=== PATIENT | female | born 2000 | race Caucasian/White ===

== ENCOUNTER 2019-06-18 20:46 | Emergency (ER) | payer BC ==
[2019-06-18 21:17] VITALS: RESP 18
[2019-06-18] MEDS ORDERED: SODIUM CHLORIDE 0.9% 1,000 ML IV ONE (21:35)
[2019-06-18 22:44] LABS: Basophils # (A) 0.1 k/uL (0-0.2); Basophils % (A) 1 %; Eosinophils # (A) 0.1 k/uL (0-0.7); Eosinophils % (A) 1 %; HCT 46.1 % (34.0-46.0); HGB 15.1 gm/dL (11.4-16.0); Lymphocytes # (A) 1.8 k/uL (1.0-4.8); Lymphocytes % (A) 20 %; MCH 29.1 pg (25.0-35.0); MCHC 32.7 g/dL (31.0-37.0); MCV 88.8 fL (80.0-100.0); Mean Platelet Volume 8.5; Monocytes # (A) 0.3 k/uL (0-1.0); Monocytes % (A) 4 %; Neutrophils # (A) 6.3 k/uL (1.3-7.7); Neutrophils % (A) 73 %; Platelet Count 233 k/uL (150-450); RBC 5.18 m/uL (3.80-5.40); WBC 8.7 k/uL (4.0-11.0)
[2019-06-18 22:47] LABS: Appearance,Urine Clear (Clear); Bilirubin,Urine Negative (Negative); Blood,Urine Negative (Negative); Color,Urine Light Yellow; Glucose,Urine (UA) 4+ (Negative); Ketones,Urine Negative (Negative); Leukocyte Esterase,Urine Negative (Negative); Nitrite,Urine Negative (Negative); Protein,Urine Negative (Negative); Specific Gravity,Urine 1.023 (1.001-1.035); Urobilinogen,Urine <2.0 mg/dL (<2.0)
--- NOTE | 2019-06-18 22:47 | ED ---
General Adult HPI - General Chief complaint: Recheck/Abnormal Lab/Rx Stated complaint: Hyperglycemia Time Seen by Provider: 06/18/19 21:34 Source: patient Mode of arrival: ambulatory Limitations: no limitations - History of Present Illness Initial comments: Mariaa is a 19-year-old female with a past medical history of insulin-dependent diabetes was diagnosed when she was 11 years old. Patient has an insulin pump and monitors her glucose closely. She reports over the past week she's been having elevated glucose with levels in the 2 to 300s despite using her pump. She states that she has moved her pump and used a new pump site in case there is pump malfunction. She states that today her sugar seemed to be improving. She did note that her heart rates also been fast and she's not been feeling well for a few days. She saw her clerk general office Sunday who did blood work and called her to let her know that she is in early DKA and needed to come to the hospital. Patient denies any recent illness, fevers chills nausea vomiting change in bowel or bladder habits. She hasn't had any URI-like symptoms. She is not experiencing urinary tract infection like symptoms. has only had DKA one time since being diagnosed with diabetes. Her gluc ose is usually well-managed with her insulin pump. - Related Data Allergies Allergy/AdvReac Type Severity Reaction Status Date / Time amoxicillin Allergy Unknown Verified 06/18/19 21:17 Review of Systems ROS Statement: Those systems with pertinent positive or pertinent negative responses have been documented in the HPI. ROS Other: All systems not noted in ROS Statement are negative. Past Medical History Past Medical History: Diabetes Mellitus History of Any Multi-Drug Resistant Organisms: None Reported Past Surgical History: No Surgical Hx Reported Past Psychological History: No Psychological Hx Reported Smoking Status: Never smoker Past Alcohol Use History: None Reported Past Drug Use History: None Reported General Exam - General Exam Comments Initial Comments: Physical Exam GENERAL: Patient is well-developed and well-nourished. Patient is nontoxic and well- hydrated and is in no distress. HENT: Normocephalic, Atraumatic. EYES: PERRL, EOMI PULMONARY: Unlabored respirations. No audible rales rhonchi or wheezing was noted. CARDIOVASCULAR: There is a regular rate and rhythm without any murmurs gallops or rubs. ABDOMEN: Soft and nontender with normal bowel sounds. SKIN: Skin is clear with no lesions or rashes and otherwise unremarkable. Insulin pump in place right posterior arm : Deferred NEUROLOGIC: Patient is alert and oriented x3. Moving all extremities spontaneously MUSCULOSKELETAL: Normal extremities with adequate strength and full range of motion. No lower extremity swelling or edema. No calf tenderness. PSYCHIATRIC: Normal psychiatric evaluation. Limitations: no limitations Course Vital Signs 06/18/19 21:14 Temperature 98.7 F Pulse Rate 120 H Respiratory 18 Rate Blood Pressure 141/91 O2 Sat by Pulse 98 Oximetry Medical Decision Making - Medical Decision Making The patient was seen and evaluated history is obtained from the patient. Patient's been having hyperglycemia she saw her clerk general office who told her on Sunday that she may be in early DKA, she changed her insulin slightly bolused insulin and has been drinking plenty of water since that time but decided to come to the ER for evaluation today. Labs were ordered and were unremarkable, there is no anion gap, glucose is 127. This time there is no evidence of DKA. Results were discussed with the patient who is comfortable with plan for disc harge home. All questions pertaining care were answered return parameters were discussed patient discharged home in stable condition. - Lab Data Result diagrams: 06/18/19 22:45 06/18/19 22:15 Lab Results 06/18/19 06/18/19 06/18/19 Range/Units 22:15 22:15 22:15 WBC (4.0-11.0) k/uL RBC (3.80-5.40) m/uL Hgb (11.4-16.0) gm/dL Hct (34.0-46.0) % MCV (80.0-100.0) fL MCH (25.0-35.0) pg MCHC (31.0-37.0) g/dL RDW (11.5-15.5) % Plt Count (150-450) k/uL Neutrophils % % Lymphocytes % % Monocytes % % Eosinophils % % Basophils % % Neutrophils # (1.3-7.7) k/uL Lymphocytes # (1.0-4.8) k/uL Monocytes # (0-1.0) k/uL Eosinophils # (0-0.7) k/uL Basophils # (0-0.2) k/uL VBG pH (7.31-7.41) VBG pCO2 (37-51) mmHg VBG HCO3 (24-28) mmol/L Sodium 139 (137-145) mmol/L Potassium 4.3 (3.5-5.1) mmol/L Chloride 106 (98-107) mmol/L Carbon Dioxide 25 (22-30) mmol/L Anion Gap 8 mmol/L BUN 16 (7-17) mg/dL Creatinine 0.82 (0.52-1.04) mg/dL Est GFR (CKD-EPI)AfAm >90 (>60 ml/min/1.73 sqM) Est GFR (CKD-EPI)NonAf >90 (>60 ml/min/1.73 sqM) Glucose 127 H (74-99) mg/dL Plasma Lactic Acid Kb 1.3 (0.7-2.0) mmol/L Calcium 9.7 (8.4-10.2) mg/dL Magnesium 2.0 (1.6-2.3) mg/dL Total Bilirubin 0.4 (0.2-1.3) mg/dL AST 30 (14-36) U/L ALT 23 (9-52) U/L Alkaline Phosphatase 95 (38-126) U/L Total Protein 8.1 (6.3-8.2) g/dL Albumin 4.6 (3.5-5.0) g/dL TSH 2.510 (0.465-4.680) mIU/L Urine Color Light Yellow Urine Appearance Clear (Clear) Urine pH 7.0 (5.0-8.0) Ur Specific [place] 1.023 (1.001-1.035) Urine Protein Negative (Negative) Urine Glucose (UA) 4+ H (Negative) Urine Ketones Negative (Negative) Urine Blood Negative (Negative) Urine Nitrite Negative (Negative) Urine Bilirubin Negative (Negative) Urine Urobilinogen <2.0 (<2.0) mg/dL Ur Leukocyte Esterase Negative (Negative) Urine HCG, Qual (Not Detectd) Acetone, Qual Negative (Negative) 06/18/19 06/18/19 06/18/19 Range/Units 22:45 22:45 23:02 WBC 8.7 (4.0-11.0) k/uL RBC 5.18 (3.80-5.40) m/uL Hgb 15.1 (11.4-16.0) gm/dL Hct 46.1 H (34.0-46.0) % MCV 88.8 (80.0-100.0) fL MCH 29.1 (25.0-35.0) pg MCHC 32.7 (31.0-37.0) g/dL RDW 13.0 (11.5-15.5) % Plt Count 233 (150-450) k/uL Neutrophils % 73 % Lymphocytes % 20 % Monocytes % 4 % Eosinophils % 1 % Basophils % 1 % Neutrophils # 6.3 (1.3-7.7) k/uL Lymphocytes # 1.8 (1.0-4.8) k/uL Monocytes # 0.3 (0-1.0) k/uL Eosinophils # 0.1 (0-0.7) k/uL Basophils # 0.1 (0-0.2) k/uL VBG pH 7.35 (7.31-7.41) VBG pCO2 47 (37-51) mmHg VBG HCO3 25 (24-28) mmol/L Sodium (137-145) mmol/L Potassium (3.5-5.1) mmol/L Chloride (98-107) mmol/L Carbon Dioxide (22-30) mmol/L Anion Gap mmol/L BUN (7-17) mg/dL Creatinine (0.52-1.04) mg/dL Est GFR (CKD-EPI)AfAm (>60 ml/min/1.73 sqM) Est GFR (CKD-EPI)NonAf (>60 ml/min/1.73 sqM) Glucose (74-99) mg/dL Plasma Lactic Acid Kb (0.7-2.0) mmol/L Calcium (8.4-10.2) mg/dL Magnesium (1.6-2.3) mg/dL Total Bilirubin (0.2-1.3) mg/dL AST (14-36) U/L ALT (9-52) U/L Alkaline Phosphatase (38-126) U/L Total Protein (6.3-8.2) g/dL Albumin (3.5-5.0) g/dL TSH (0.465-4.680) mIU/L Urine Color Urine Appearance (Clear) Urine pH (5.0-8.0) Ur Specific [place] (1.001-1.035) Urine Protein (Negative) Urine Glucose (UA) (Negative) Urine Ketones (Negative) Urine Blood (Negative) Urine Nitrite (Negative) Urine Bilirubin (Negative) Urine Urobilinogen (<2.0) mg/dL Ur Leukocyte Esterase (Negative) Urine HCG, Qual Not Detected (Not Detectd) Acetone, Qual (Negative) Disposition Clinical Impression: Hyperglycemia due to type 1 diabetes mellitus Disposition: HOME SELF-CARE Condition: Stable Instructions (If sedation given, give patient instructions): Diabetic Ketoacidosis (DC) Is patient prescribed a controlled substance at d/c from ED?: No Referrals: Amari Au DO [Primary Care Provider] - 1-2 days
[2019-06-18 23:00] LABS: ALT 23 U/L (9-52); AST 30 U/L (14-36); African American GFR (CKD) >90 (>60 ml/min/1.73 sqM); Albumin 4.6 g/dL (3.5-5.0); Alkaline Phosphatase 95 U/L (38-126); Anion Gap 8 mmol/L; Blood Urea Nitrogen 16 mg/dL (7-17); Calcium 9.7 mg/dL (8.4-10.2); Carbon Dioxide 25 mmol/L (22-30); Chloride 106 mmol/L (98-107); Glucose 127 mg/dL (74-99); Potassium 4.3 mmol/L (3.5-5.1); Sodium 139 mmol/L (137-145); Total Bilirubin 0.4 mg/dL (0.2-1.3); Total Protein 8.1 g/dL (6.3-8.2)
[2019-06-18 23:31] LABS: VBG PH 7.35 (7.31-7.41)
[2019-06-19 00:05] VITALS: BP 125/82; PULSE 91; TEMP 98
== END 2019-06-19 00:09 | disposition home or self-care (01) ==
LOC: EC 20:46
DX: E10.65 Type 1 diabetes mellitus with hyperglycemia (principal); Z79.4 Long term (current) use of insulin; Z96.41 Presence of insulin pump (external) (internal); Z88.0 Allergy status to penicillin
CPT/HCPCS: 36415; 80053; 81003; 81025; 82009; 82803; 83605; 83735; 83930; 84443; 85025; 87040; 96360; 99284

== ENCOUNTER 2019-08-04 18:52 | Inpatient (IN) | payer BC ==
[2019-08-04 19:23] LABS: Glucose,Whole Blood 377 mg/dL (75-99)
--- NOTE | 2019-08-04 19:23 | ED ---
Nausea/Vomiting/Diarrhea HPI <Esperanza Garcia - Last Filed: 08/04/19 19:16> <Sharon Griffin - Last Filed: 08/05/19 00:17> - General Stated complaint: Vomiting/lightheaded - History of Present Illness Initial comments: seen in triage sinus infection x 1 week, on bactrim for sinus infection x 3 days, now vomiting, lightheaded, [place], belly pain type 1 DM, last BG 230 ATP orders in (Esperanza Garcia) Type I diabetic presenting today for chief complaint of vomiting lightheaded sensation x 2 days. Patient states that she was recently put on Bactrim for sinus infection 3 days ago. She states she has had a severe cough and congestion. Patient states that now she has an upset stomach lightheaded sensation and has been vomiting. Patient states she has had elevated blood glucose readings with the last being in the 300s. Patient patient states she also has had episodes of loose stools she denies any specific a dull pain. Patient denies any other complaints at this time, including CP or SOB. Patient HR 148. (Sharon Griffin) - Related Data Home Medications Medication Instructions Recorded Confirmed Insulin Aspart (For Pump) [NovoLOG 0.01 unit SQ-PUMP CONTINUOUS 08/04/19 08/04/19 (For Pump)] Mucinex Sinus Max Nasal [place] 1 spr EA NOSTRIL DAILY 08/04/19 Sulfamethoxazole/Trimethoprim 1 tab PO BID 08/04/19 08/04/19 [Bactrim DS 800-160 mg] medroxyPROGESTERone [Depo-Provera] 150 mg IM Q84D 08/04/19 08/04/19 Allergies Allergy/AdvReac Type Severity Reaction Status Date / Time amoxicillin Allergy Unknown Verified 08/04/19 22:58 Review of Systems ROS Other: All systems not noted in ROS Statement are negative. <Esperanza Garcia - Last Filed: 08/04/19 19:16> ROS Other: All systems not noted in ROS Statement are negative. <Sharon Griffin - Last Filed: 08/05/19 00:17> ROS Statement: Those systems with pertinent positive or pertinent negative responses have been documented in the HPI. Past Medical History Past Medical History: Diabetes Mellitus History of Any Multi-Drug Resistant Organisms: None Reported Past Surgical History: No Surgical Hx Reported Past Psychological History: No Psychological Hx Reported Smoking Status: Never smoker Past Alcohol Use History: None Reported Past Drug Use History: None Reported <Esperanza Garcia - Last Filed: 08/04/19 19:16> General Exam <Sharon Griffin - Last Filed: 08/05/19 00:17> - General Exam Comments Initial Comments: General: The patient is awake and alert, in no distress Eye: +3 mm pupils are equal, round and reactive to light, extra-ocular movements are intact. No nystagmus. There is normal conjunctiva bilaterally. No signs of icterus. Ears, nose, mouth and throat: There are dry mucous membranes with cracked lips. Neck: The neck is supple, there is no tenderness or JVD. Cardiovascular: There is a increased rate and rhythm. No murmur, rub or gallop is appreciated. Respiratory: Lungs are clear to auscultation, respirations are non-labored, breath sounds are equal. No wheezes, stridor, rales, or rhonchi. Gastrointestinal: Soft, non-distended, non-tender abdomen without masses or organomegaly noted. There is no rebound or guarding present. Musculoskeletal: Normal ROM, no tenderness. Strength 5/5. Sensation intact. radial pulses equal bilaterally 2+. Neurological: A&O x 3. CN II-XII intact grossly, There are no obvious motor or sensory deficits. Coordination appears grossly intact. Speech is normal. Skin: Skin is warm and dry and no rashes or lesions are noted. Psychiatric: Cooperative, appropriate mood & affect, normal judgment. (Sharon Griffin) Course Vital Signs 08/04/19 08/04/19 08/04/19 19:14 21:49 22:49 Temperature 97.3 F L Pulse Rate 148 H 120 H 111 H Respiratory 20 18 18 Rate Blood Pressure 114/43 122/87 136/92 O2 Sat by Pulse 99 100 99 Oximetry 08/04/19 08/04/19 23:05 23:12 Temperature 97.3 F L Pulse Rate 108 H 108 H Respiratory 18 18 Rate Blood Pressure 113/86 113/86 O2 Sat by Pulse 100 100 Oximetry Medical Decision Making - Lab Data Result diagrams: 08/04/19 20:10 08/04/19 20:10 <Sharon Griffin - Last Filed: 08/05/19 00:17> - Medical Decision Making 19-year-old female presents today for chief complaint of vomiting, lightheaded. HR 148 on arrival. Appears dehydrated. Found to be in DKA. patient given agressive iv hydration, insulin drip. HR trending downward. Pt does not appear in distress. CXR clear. EKG sinus tachycardia. Patient will be admitted to ICU, discussed case with Dr. Mendieta who will speak to household appliance repairer admitting providers. Patient agreeable with care plan and admission at this time. Total of 45 minutes of critical care time was spent on patient including consulting provider (intensivists, admitting providers), initial evaluation, placing orders, reevaluation/updates Ventricular rate 147 bpm, NE interval 120 ms, QR administration 72 ms, QT/QTC 336/525ms. Artifact noted. No st elevation or depression. (Sharon Griffin) - Lab Data Lab Results 08/04/19 08/04/19 08/04/19 Range/Units 19:21 20:10 20:10 WBC 7.8 (4.0-11.0) k/uL RBC 6.27 H (3.80-5.40) m/uL Hgb 18.6 H D (11.4-16.0) gm/dL Hct 55.2 H (34.0-46.0) % MCV 88.0 (80.0-100.0) fL MCH 29.7 (25.0-35.0) pg MCHC 33.7 (31.0-37.0) g/dL RDW 13.1 (11.5-15.5) % Plt Count 215 (150-450) k/uL Neutrophils % 69 % Lymphocytes % 20 % Monocytes % 9 % Eosinophils % 1 % Basophils % 1 % Neutrophils # 5.4 (1.3-7.7) k/uL Lymphocytes # 1.5 (1.0-4.8) k/uL Monocytes # 0.7 (0-1.0) k/uL Eosinophils # 0.0 (0-0.7) k/uL Basophils # 0.1 (0-0.2) k/uL VBG pH (7.31-7.41) VBG pCO2 (37-51) mmHg VBG HCO3 (24-28) mmol/L Sodium 132 L (137-145) mmol/L Potassium 5.7 H (3.5-5.1) mmol/L Chloride 100 (98-107) mmol/L Carbon Dioxide 6 L* (22-30) mmol/L Anion Gap 26 mmol/L BUN 24 H (7-17) mg/dL Creatinine 0.90 (0.52-1.04) mg/dL Est GFR (CKD-EPI)AfAm >90 (>60 ml/min/1.73 sqM) Est GFR (CKD-EPI)NonAf >90 (>60 ml/min/1.73 sqM) Glucose 342 H (74-99) mg/dL POC Glucose (mg/dL) 377 H (75-99) mg/dL POC Glu Heel Curver ID Calcium 10.4 H (8.4-10.2) mg/dL Phosphorus 4.8 H (2.5-4.5) mg/dL Magnesium 2.1 (1.6-2.3) mg/dL Total Bilirubin 1.1 (0.2-1.3) mg/dL AST 38 H (14-36) U/L ALT 17 (4-34) U/L Alkaline Phosphatase 140 H (38-126) U/L Total Protein 10.0 H (6.3-8.2) g/dL Albumin 5.4 H (3.5-5.0) g/dL Urine Color Urine Appearance (Clear) Urine pH (5.0-8.0) Ur Specific [place] (1.001-1.035) Urine Protein (Negative) Urine Glucose (UA) (Negative) Urine Ketones (Negative) Urine Blood (Negative) Urine Nitrite (Negative) Urine Bilirubin (Negative) Urine Urobilinogen (<2.0) mg/dL Ur Leukocyte Esterase (Negative) Urine RBC (0-5) /hpf Urine WBC (0-5) /hpf Ur Squamous Epith Cells (0-4) /hpf Urine Bacteria (None) /hpf Hyaline Casts (0-2) /lpf Urine Mucus (None) /hpf Urine HCG, Qual (Not Detectd) Acetone, Qual (Negative) 08/04/19 08/04/19 08/04/19 Range/Units 20:10 20:10 20:33 WBC (4.0-11.0) k/uL RBC (3.80-5.40) m/uL Hgb (11.4-16.0) gm/dL Hct (34.0-46.0) % MCV (80.0-100.0) fL MCH (25.0-35.0) pg MCHC (31.0-37.0) g/dL RDW (11.5-15.5) % Plt Count (150-450) k/uL Neutrophils % % Lymphocytes % % Monocytes % % Eosinophils % % Basophils % % Neutrophils # (1.3-7.7) k/uL Lymphocytes # (1.0-4.8) k/uL Monocytes # (0-1.0) k/uL Eosinophils # (0-0.7) k/uL Basophils # (0-0.2) k/uL VBG pH (7.31-7.41) VBG pCO2 (37-51) mmHg VBG HCO3 (24-28) mmol/L Sodium (137-145) mmol/L Potassium (3.5-5.1) mmol/L Chloride (98-107) mmol/L Carbon Dioxide (22-30) mmol/L Anion Gap mmol/L BUN (7-17) mg/dL Creatinine (0.52-1.04) mg/dL Est GFR (CKD-EPI)AfAm (>60 ml/min/1.73 sqM) Est GFR (CKD-EPI)NonAf (>60 ml/min/1.73 sqM) Glucose (74-99) mg/dL POC Glucose (mg/dL) (75-99) mg/dL POC Glu Heel Curver ID Calcium (8.4-10.2) mg/dL Phosphorus (2.5-4.5) mg/dL Magnesium (1.6-2.3) mg/dL Total Bilirubin (0.2-1.3) mg/dL AST (14-36) U/L ALT (4-34) U/L Alkaline Phosphatase (38-126) U/L Total Protein (6.3-8.2) g/dL Albumin (3.5-5.0) g/dL Urine Color Yellow Urine Appearance Cloudy H (Clear) Urine pH 6.0 (5.0-8.0) Ur Specific [place] 1.033 (1.001-1.035) Urine Protein 2+ H (Negative) Urine Glucose (UA) 4+ H (Negative) Urine Ketones 4+ H (Negative) Urine Blood Large H (Negative) Urine Nitrite Negative (Negative) Urine Bilirubin Negative (Negative) Urine Urobilinogen <2.0 (<2.0) mg/dL Ur Leukocyte Esterase Small H (Negative) Urine RBC 115 H (0-5) /hpf Urine WBC 14 H (0-5) /hpf Ur Squamous Epith Cells 3 (0-4) /hpf Urine Bacteria Rare H (None) /hpf Hyaline Casts 18 H (0-2) /lpf Urine Mucus Rare H (None) /hpf Urine HCG, Qual Not Detected (Not Detectd) Acetone, Qual Positive (Negative) 08/04/19 08/04/19 Range/Units 21:05 22:25 WBC (4.0-11.0) k/uL RBC (3.80-5.40) m/uL Hgb (11.4-16.0) gm/dL Hct (34.0-46.0) % MCV (80.0-100.0) fL MCH (25.0-35.0) pg MCHC (31.0-37.0) g/dL RDW (11.5-15.5) % Plt Count (150-450) k/uL Neutrophils % % Lymphocytes % % Monocytes % % Eosinophils % % Basophils % % Neutrophils # (1.3-7.7) k/uL Lymphocytes # (1.0-4.8) k/uL Monocytes # (0-1.0) k/uL Eosinophils # (0-0.7) k/uL Basophils # (0-0.2) k/uL VBG pH 7.17 L* (7.31-7.41) VBG pCO2 29 L (37-51) mmHg VBG HCO3 10 L (24-28) mmol/L Sodium (137-145) mmol/L Potassium (3.5-5.1) mmol/L Chloride (98-107) mmol/L Carbon Dioxide (22-30) mmol/L Anion Gap mmol/L BUN (7-17) mg/dL Creatinine (0.52-1.04) mg/dL Est GFR (CKD-EPI)AfAm (>60 ml/min/1.73 sqM) Est GFR (CKD-EPI)NonAf (>60 ml/min/1.73 sqM) Glucose (74-99) mg/dL POC Glucose (mg/dL) 248 H (75-99) mg/dL POC Glu Heel Curver ID Jorge Alberto Flores Calcium (8.4-10.2) mg/dL Phosphorus (2.5-4.5) mg/dL Magnesium (1.6-2.3) mg/dL Total Bilirubin (0.2-1.3) mg/dL AST (14-36) U/L ALT (4-34) U/L Alkaline Phosphatase (38-126) U/L Total Protein (6.3-8.2) g/dL Albumin (3.5-5.0) g/dL Urine Color Urine Appearance (Clear) Urine pH (5.0-8.0) Ur Specific [place] (1.001-1.035) Urine Protein (Negative) Urine Glucose (UA) (Negative) Urine Ketones (Negative) Urine Blood (Negative) Urine Nitrite (Negative) Urine Bilirubin (Negative) Urine Urobilinogen (<2.0) mg/dL Ur Leukocyte Esterase (Negative) Urine RBC (0-5) /hpf Urine WBC (0-5) /hpf Ur Squamous Epith Cells (0-4) /hpf Urine Bacteria (None) /hpf Hyaline Casts (0-2) /lpf Urine Mucus (None) /hpf Urine HCG, Qual (Not Detectd) Acetone, Qual (Negative) Disposition <Esperanza Garcia L - Last Filed: 08/04/19 19:16> Is patient prescribed a controlled substance at d/c from ED?: No Time of Disposition: 22:29 Decision to Admit Reason: Admit from EC Decision Date: 08/04/19 Decision Time: 22:29 <Sharon Griffin L - Last Filed: 08/05/19 00:17> Clinical Impression: DKA (diabetic ketoacidoses) Disposition: ADMITTED IP TO THIS [facility] Condition: Serious
[2019-08-04] MEDS ORDERED: SODIUM CHLORIDE 0.9% 1,000 ML IV ONE (19:47)
[2019-08-04 20:45] LABS: Appearance,Urine Cloudy (Clear); Bacteria,Urine Rare /hpf; Bilirubin,Urine Negative (Negative); Blood,Urine Large (Negative); Color,Urine Yellow; Glucose,Urine (UA) 4+ (Negative); Hyaline Casts,Urine 18 /lpf (0-2); Leukocyte Esterase,Urine Small (Negative); Mucus,Urine Rare /hpf; Nitrite,Urine Negative (Negative); Protein,Urine 2+ (Negative); RBC,Urine 115 /hpf (0-5); Specific Gravity,Urine 1.033 (1.001-1.035); Squamous Epithelial Cell,Urine 3 /hpf (0-4); Urobilinogen,Urine <2.0 mg/dL (<2.0); WBC,Urine 14 /hpf (0-5)
[2019-08-04 20:48] LABS: Ketones,Urine 4+ (Negative)
[2019-08-04 20:54] LABS: Basophils # (A) 0.1 k/uL (0-0.2); Basophils % (A) 1 %; Eosinophils % (A) 1 %; Lymphocytes # (A) 1.5 k/uL (1.0-4.8); Lymphocytes % (A) 20 %; MCH 29.7 pg (25.0-35.0); MCHC 33.7 g/dL (31.0-37.0); Mean Platelet Volume 11.9; Monocytes # (A) 0.7 k/uL (0-1.0); Monocytes % (A) 9 %; Neutrophils # (A) 5.4 k/uL (1.3-7.7); Neutrophils % (A) 69 %; Platelet Count 215 k/uL (150-450); RBC 6.27 m/uL (3.80-5.40); RDW 13.1 % (11.5-15.5); WBC 7.8 k/uL (4.0-11.0)
[2019-08-04 21:06] LABS: ALT 17 U/L (4-34); AST 38 U/L (14-36); African American GFR (CKD) >90 (>60 ml/min/1.73 sqM); Albumin 5.4 g/dL (3.5-5.0); Alkaline Phosphatase 140 U/L (38-126); Anion Gap 26 mmol/L; Blood Urea Nitrogen 24 mg/dL (7-17); Calcium 10.4 mg/dL (8.4-10.2); Chloride 100 mmol/L (98-107); Glucose 342 mg/dL (74-99); Magnesium 2.1 mg/dL (1.6-2.3); Non-African American GFR(CKD) >90 (>60 ml/min/1.73 sqM); Phosphorus 4.8 mg/dL (2.5-4.5); Potassium 5.7 mmol/L (3.5-5.1); Sodium 132 mmol/L (137-145); Total Bilirubin 1.1 mg/dL (0.2-1.3)
[2019-08-04 21:13] LABS: Carbon Dioxide 6 mmol/L (22-30)
[2019-08-04 21:15] LABS: HCT 55.2 % (34.0-46.0)
[2019-08-04] MEDS: SODIUM CHLORIDE 0.9% 1,000 ML IV SCH ×2 (21:16→23:36)
[2019-08-04 21:17] LABS: HGB 18.6 gm/dL (11.4-16.0)
--- NOTE | 2019-08-04 21:43 | XR ---
EXAMINATION TYPE: XR chest 2V DATE OF EXAM: 08/04/2019 COMPARISON: NONE HISTORY: Chest pain TECHNIQUE: 2 views FINDINGS: Heart and mediastinum are normal. Lungs are clear. Diaphragm is normal. Bony thorax appears normal. IMPRESSION: Normal chest.
[2019-08-04] MEDS: INSULIN REGULAR 100 UNIT in SODIUM CHLORIDE 0.9% 100 ML IV SCH (21:47)
[2019-08-04 22:19] LABS: VBG PH 7.17 (7.31-7.41)
[2019-08-04 22:27] LABS: Glucose,Whole Blood 248 mg/dL (75-99)
[2019-08-04] MEDS ORDERED: D5-0.45% NACL WITH KCL 20MEQ/L 1,000 ML IV SCH (22:30)
[2019-08-04 23:31] LABS: Glucose,Whole Blood 168 mg/dL (75-99)
[2019-08-05 00:40] LABS: Glucose,Whole Blood 164 mg/dL (75-99)
[2019-08-05 01:29] LABS: African American GFR (CKD) >90 (>60 ml/min/1.73 sqM); Blood Urea Nitrogen 22 mg/dL (7-17); Calcium 8.8 mg/dL (8.4-10.2); Chloride 112 mmol/L (98-107); Glucose 148 mg/dL (74-99); Non-African American GFR(CKD) >90 (>60 ml/min/1.73 sqM); Phosphorus 2.5 mg/dL (2.5-4.5); Sodium 135 mmol/L (137-145)
[2019-08-05 01:34] LABS: Anion Gap 16 mmol/L
[2019-08-05 01:37] LABS: Glucose,Whole Blood 144 mg/dL (75-99)
[2019-08-05 01:47] LABS: Carbon Dioxide 7 mmol/L (22-30); Potassium 5.6 mmol/L (3.5-5.1)
[2019-08-05] MEDS: DEXTROSE 5%-0.45% NACL 1,000 ML IV SCH ×3 (02:32→17:36)
[2019-08-05 02:35] LABS: Glucose,Whole Blood 135 mg/dL (75-99)
[2019-08-05 03:37] LABS: Glucose,Whole Blood 137 mg/dL (75-99)
[2019-08-05 04:34] LABS: Glucose,Whole Blood 186 mg/dL (75-99)
[2019-08-05 05:38] LABS: Glucose,Whole Blood 194 mg/dL (75-99)
[2019-08-05 05:44] LABS: Basophils # (A) 0.1 k/uL (0-0.2); Basophils % (A) 1 %; Eosinophils # (A) 0.2 k/uL (0-0.7); Eosinophils % (A) 3 %; HCT 41.4 % (34.0-46.0); Lymphocytes # (A) 2.4 k/uL (1.0-4.8); Lymphocytes % (A) 36 %; MCH 29.3 pg (25.0-35.0); MCHC 34.6 g/dL (31.0-37.0); MCV 84.6 fL (80.0-100.0); Mean Platelet Volume 11.2; Monocytes # (A) 0.6 k/uL (0-1.0); Monocytes % (A) 9 %; Neutrophils # (A) 3.2 k/uL (1.3-7.7); Neutrophils % (A) 49 %; Platelet Count 218 k/uL (150-450); RBC 4.89 m/uL (3.80-5.40); RDW 12.9 % (11.5-15.5); WBC 6.6 k/uL (4.0-11.0)
[2019-08-05 05:45] LABS: HGB 14.3 gm/dL (11.4-16.0)
[2019-08-05 05:59] LABS: African American GFR (CKD) >90 (>60 ml/min/1.73 sqM); Anion Gap 13 mmol/L; Blood Urea Nitrogen 21 mg/dL (7-17); Calcium 8.8 mg/dL (8.4-10.2); Chloride 110 mmol/L (98-107); Glucose 177 mg/dL (74-99); Non-African American GFR(CKD) >90 (>60 ml/min/1.73 sqM); Phosphorus 2.9 mg/dL (2.5-4.5); Sodium 132 mmol/L (137-145)
[2019-08-05 06:01] LABS: Carbon Dioxide 9 mmol/L (22-30)
[2019-08-05 07:01] LABS: Glucose,Whole Blood 225 mg/dL (75-99)
[2019-08-05 08:12] LABS: Glucose,Whole Blood 293 mg/dL (75-99)
[2019-08-05 09:20] LABS: Glucose,Whole Blood 310 mg/dL (75-99)
[2019-08-05 10:11] LABS: African American GFR (CKD) >90 (>60 ml/min/1.73 sqM); Anion Gap 12 mmol/L; Blood Urea Nitrogen 17 mg/dL (7-17); Calcium 7.9 mg/dL (8.4-10.2); Carbon Dioxide 12 mmol/L (22-30); Chloride 106 mmol/L (98-107); Glucose 304 mg/dL (74-99); Non-African American GFR(CKD) >90 (>60 ml/min/1.73 sqM); Phosphorus 2.6 mg/dL (2.5-4.5); Potassium 3.9 mmol/L (3.5-5.1); Sodium 130 mmol/L (137-145)
[2019-08-05 10:16] VITALS: BMI 25.0
[2019-08-05 10:17] LABS: Glucose,Whole Blood 280 mg/dL (75-99)
[2019-08-05 11:19] LABS: Glucose,Whole Blood 244 mg/dL (75-99)
[2019-08-05 12:12] LABS: Glucose,Whole Blood 229 mg/dL (75-99)
[2019-08-05 13:03] LABS: Glucose,Whole Blood 239 mg/dL (75-99)
[2019-08-05 14:00] LABS: Glucose,Whole Blood 200 mg/dL (75-99)
[2019-08-05 14:34] LABS: African American GFR (CKD) >90 (>60 ml/min/1.73 sqM); Anion Gap 10 mmol/L; Blood Urea Nitrogen 15 mg/dL (7-17); Calcium 8.2 mg/dL (8.4-10.2); Carbon Dioxide 14 mmol/L (22-30); Chloride 108 mmol/L (98-107); Glucose 194 mg/dL (74-99); Non-African American GFR(CKD) >90 (>60 ml/min/1.73 sqM); Potassium 3.3 mmol/L (3.5-5.1); Sodium 132 mmol/L (137-145)
[2019-08-05 15:09] LABS: Glucose,Whole Blood 191 mg/dL (75-99)
[2019-08-05 16:05] LABS: Glucose,Whole Blood 158 mg/dL (75-99)
[2019-08-05] MEDS ORDERED: INSPUCOR MISCELLANE PRN (17:07)
[2019-08-05] MEDS ORDERED: INSULIN PUMP BASAL RATES 1 EACH MISC MISCELLANE PRN (17:07)
[2019-08-05] MEDS ORDERED: INSULIN ASPART (NovoLOG) 100 UNIT/ML VIAL SQ PRN (17:07)
[2019-08-05] MEDS: INSULIN REGULAR 100 UNIT in SODIUM CHLORIDE 0.9% 100 ML IV SCH (17:36)
[2019-08-05 17:38] LABS: Glucose,Whole Blood 155 mg/dL (75-99)
[2019-08-05] MEDS: INSULIN PUMP MEAL BOLUS 1 UNIT MISC MISCELLANE SCH ×2 (17:50→21:09)
--- NOTE | 2019-08-05 18:39 | P.HPIM ---
History of Present Illness H&P Date: 08/05/19 Chief Complaint: Nausea vomiting and abdominal pain. Patient is a 19-year-old female with a known history of diabetes type 1 currently on insulin pump came to ER with the complaints of nausea vomiting and abdominal pain worsening for the past 2-3 days. Patient also felt lightheaded. Currently patient is being treated for sinus infection with Bactrim DS twice daily. Patient did take medication for 2 days. Due to nausea and vomiting patient has not been eating very well last 2-3 days. Patient has been having blood sugar elevated reading up to 300s at home. She also had episodes of diarrhea/loose stools. Abdominal pain is mainly diffuse and dull ache. Denied any complaints of chest pain or shortness of breath. No headache. No cough or sputum production. Patient was tachycardic with heart rate up to 148 on admission. Was found to be in DKA and was started on insulin drip and continued on IV hydration. Chest x-ray showed no acute cardio per process EKG showed sinus tachycardia. Patient was admitted to MICU. Anion gap 26 and bicarb level is 6 on admission. Potassium 5.7. Acetone positive Urinalysis showed cloudy with small leukocyte esterase with elevated WBC and RBCs. Review of Systems Constitutional: Patient denies any fever or chills . Generalized weakness and lethargy. No weight loss. Abdomen: Nausea vomiting and abdominal pain. And diarrhea as well.. Cardiovascular: Patient denies any chest pain or short of breath no palpitations. Respiratory: patient denied any cough is from production. No shortness of breath Neurologic: Patient denied any numbness or tingling headache. Musculoskeletal: Patient denies any complaints of joint swelling or deformity. Skin: Negative Psychiatric: Negative Endocrine: No heat or cold intolerance. No recent weight gain. Genitourinary: No dysuria or hematuria. All other 14 point ROS negative except the above Constitutional: Reports chronic headaches Past Medical History Past Medical History: Diabetes Mellitus History of Any Multi-Drug Resistant Organisms: None Reported Past Surgical History: No Surgical Hx Reported Past Psychological History: No Psychological Hx Reported Smoking Status: Never smoker Past Alcohol Use History: None Reported Past Drug Use History: None Reported - Past Family History Mother Family Medical History: Hypertension, Thyroid Disorder Father Family Medical History: COPD Medications and Allergies Home Medications Medication Instructions Recorded Confirmed Type Insulin Aspart (For Pump) [NovoLOG 0.01 unit SQ-PUMP CONTINUOUS 08/04/19 08/04/19 History (For Pump)] Mucinex Sinus Max Nasal [place] 1 spr EA NOSTRIL DAILY 08/04/19 History Sulfamethoxazole/Trimethoprim 1 tab PO BID 08/04/19 08/04/19 History [Bactrim DS 800-160 mg] medroxyPROGESTERone [Depo-Provera] 150 mg IM Q84D 08/04/19 08/04/19 History Allergies Allergy/AdvReac Type Severity Reaction Status Date / Time amoxicillin Allergy Unknown Verified 08/04/19 22:58 Physical Exam Vitals: Vital Signs Temp Pulse Resp BP BP Pulse Ox 08/05/19 14:13 98.3 F 16 118/57 98 08/05/19 08:00 98.2 F 105 H 15 108/47 98 08/05/19 04:00 98.3 F 105 H 15 101/61 96 08/05/19 03:00 114 H 16 97 08/05/19 02:00 122 H 16 97 08/05/19 01:00 114 H 13 97 08/05/19 00:40 110 H 12 97 08/05/19 00:00 114 H 16 114/78 97 08/04/19 23:30 97.5 F L 114 H 16 123/85 98 08/04/19 23:12 97.3 F L 108 H 18 113/86 100 08/04/19 23:05 108 H 18 113/86 100 08/04/19 22:49 111 H 18 136/92 99 08/04/19 21:49 120 H 18 122/87 100 08/04/19 19:14 97.3 F L 148 H 20 114/43 99 Intake and Output 08/05/19 08/05/19 08/05/19 06:59 14:59 22:59 Intake Total 1230.700 456.823 Output Total 500 0 Balance 730.700 456.823 Intake: IV 1200 450 D5-0.45% NaCl with KCl 900 20Meq/l 1,000 ml @ 150 mls/hr IV .Q6H40M [facility] Rx# :[id number] Dextrose 5%-0.45% NaCl 1, 300 450 000 ml @ 150 mls/hr IV . Q6H40M [facility] Rx#:[id number] Intake, IV Titration 30.700 6.823 Amount Insulin Regular 100 unit 30.700 6.823 In Sodium Chloride 0.9% 100 ml @ 0.1 UNITS/KG/HR 6.368 mls/hr IV .[id number] [facility] Rx#:[id number] Output: Urine 500 0 Other: Voiding Method Toilet Toilet # Voids 1 0 Weight 64.2 kg 64.2 kg PHYSICAL EXAMINATION: Patient is lying in the bed comfortably, no acute distress, awake alert and oriented.. HEENT: Normocephalic. Neck is supple. Pupils reactive. Nostrils clear. Oral cavity is moist. Ears reveal no drainage. Neck reveals no JVD, carotid bruits, or thyromegaly. CHEST EXAMINATION: Trachea is central. Symmetrical expansion. Lung lebron clear to auscultation and percussion. CARDIAC: Normal S1, S2 with no gallops. No murmurs ABDOMEN: Soft. Nontender. No guarding no rigidity. Bowel sounds normal. No organomegaly. No abdominal bruits. Extremities: reveal no edema. No clubbing or cyanosis Neurologically awake, alert, oriented x3 with well-coordinated movements. No focal deficits noted Skin: No rash or skin lesions. Psychiatric: Coperative. Nonsuicidal Musculoskeletal: No joint swelling or deformity. Normal range of motion. Results CBC & Chem 7: 08/05/19 04:34 08/05/19 14:09 Labs: Abnormal Lab Results - Last 24 Hours (Table) 08/04/19 08/04/19 08/04/19 Range/Units 19:21 20:10 20:10 RBC 6.27 H (3.80-5.40) m/uL Hgb 18.6 H D (11.4-16.0) gm/dL Hct 55.2 H (34.0-46.0) % VBG pH (7.31-7.41) VBG pCO2 (37-51) mmHg VBG HCO3 (24-28) mmol/L Sodium 132 L (137-145) mmol/L Potassium 5.7 H (3.5-5.1) mmol/L Chloride (98-107) mmol/L Carbon Dioxide 6 L* (22-30) mmol/L BUN 24 H (7-17) mg/dL Glucose 342 H (74-99) mg/dL POC Glucose (mg/dL) 377 H (75-99) mg/dL Calcium 10.4 H (8.4-10.2) mg/dL Phosphorus 4.8 H (2.5-4.5) mg/dL AST 38 H (14-36) U/L Alkaline Phosphatase 140 H (38-126) U/L Total Protein 10.0 H (6.3-8.2) g/dL Albumin 5.4 H (3.5-5.0) g/dL Urine Appearance (Clear) Urine Protein (Negative) Urine Glucose (UA) (Negative) Urine Ketones (Negative) Urine Blood (Negative) Ur Leukocyte Esterase (Negative) Urine RBC (0-5) /hpf Urine WBC (0-5) /hpf Urine Bacteria (None) /hpf Hyaline Casts (0-2) /lpf Urine Mucus (None) /hpf 08/04/19 08/04/19 08/04/19 Range/Units 20:10 21:05 22:25 RBC (3.80-5.40) m/uL Hgb (11.4-16.0) gm/dL Hct (34.0-46.0) % VBG pH 7.17 L* (7.31-7.41) VBG pCO2 29 L (37-51) mmHg VBG HCO3 10 L (24-28) mmol/L Sodium (137-145) mmol/L Potassium (3.5-5.1) mmol/L Chloride (98-107) mmol/L Carbon Dioxide (22-30) mmol/L BUN (7-17) mg/dL Glucose (74-99) mg/dL POC Glucose (mg/dL) 248 H (75-99) mg/dL Calcium (8.4-10.2) mg/dL Phosphorus (2.5-4.5) mg/dL AST (14-36) U/L Alkaline Phosphatase (38-126) U/L Total Protein (6.3-8.2) g/dL Albumin (3.5-5.0) g/dL Urine Appearance Cloudy H (Clear) Urine Protein 2+ H (Negative) Urine Glucose (UA) 4+ H (Negative) Urine Ketones 4+ H (Negative) Urine Blood Large H (Negative) Ur Leukocyte Esterase Small H (Negative) Urine RBC 115 H (0-5) /hpf Urine WBC 14 H (0-5) /hpf Urine Bacteria Rare H (None) /hpf Hyaline Casts 18 H (0-2) /lpf Urine Mucus Rare H (None) /hpf 08/04/19 08/05/19 08/05/19 Range/Units 23:29 00:38 00:41 RBC (3.80-5.40) m/uL Hgb (11.4-16.0) gm/dL Hct (34.0-46.0) % VBG pH (7.31-7.41) VBG pCO2 (37-51) mmHg VBG HCO3 (24-28) mmol/L Sodium 135 L (137-145) mmol/L Potassium 5.6 H (3.5-5.1) mmol/L Chloride 112 H (98-107) mmol/L Carbon Dioxide 7 L* (22-30) mmol/L BUN 22 H (7-17) mg/dL Glucose 148 H (74-99) mg/dL POC Glucose (mg/dL) 168 H 164 H (75-99) mg/dL Calcium (8.4-10.2) mg/dL Phosphorus (2.5-4.5) mg/dL AST (14-36) U/L Alkaline Phosphatase (38-126) U/L Total Protein (6.3-8.2) g/dL Albumin (3.5-5.0) g/dL Urine Appearance (Clear) Urine Protein (Negative) Urine Glucose (UA) (Negative) Urine Ketones (Negative) Urine Blood (Negative) Ur Leukocyte Esterase (Negative) Urine RBC (0-5) /hpf Urine WBC (0-5) /hpf Urine Bacteria (None) /hpf Hyaline Casts (0-2) /lpf Urine Mucus (None) /hpf 08/05/19 08/05/19 08/05/19 Range/Units 01:36 02:33 03:36 RBC (3.80-5.40) m/uL Hgb (11.4-16.0) gm/dL Hct (34.0-46.0) % VBG pH (7.31-7.41) VBG pCO2 (37-51) mmHg VBG HCO3 (24-28) mmol/L Sodium (137-145) mmol/L Potassium (3.5-5.1) mmol/L Chloride (98-107) mmol/L Carbon Dioxide (22-30) mmol/L BUN (7-17) mg/dL Glucose (74-99) mg/dL POC Glucose (mg/dL) 144 H 135 H 137 H (75-99) mg/dL Calcium (8.4-10.2) mg/dL Phosphorus (2.5-4.5) mg/dL AST (14-36) U/L Alkaline Phosphatase (38-126) U/L Total Protein (6.3-8.2) g/dL Albumin (3.5-5.0) g/dL Urine Appearance (Clear) Urine Protein (Negative) Urine Glucose (UA) (Negative) Urine Ketones (Negative) Urine Blood (Negative) Ur Leukocyte Esterase (Negative) Urine RBC (0-5) /hpf Urine WBC (0-5) /hpf Urine Bacteria (None) /hpf Hyaline Casts (0-2) /lpf Urine Mucus (None) /hpf 08/05/19 08/05/19 08/05/19 Range/Units 04:32 04:34 05:37 RBC (3.80-5.40) m/uL Hgb (11.4-16.0) gm/dL Hct (34.0-46.0) % VBG pH (7.31-7.41) VBG pCO2 (37-51) mmHg VBG HCO3 (24-28) mmol/L Sodium 132 L (137-145) mmol/L Potassium (3.5-5.1) mmol/L Chloride 110 H (98-107) mmol/L Carbon Dioxide 9 L* (22-30) mmol/L BUN 21 H (7-17) mg/dL Glucose 177 H (74-99) mg/dL POC Glucose (mg/dL) 186 H 194 H (75-99) mg/dL Calcium (8.4-10.2) mg/dL Phosphorus (2.5-4.5) mg/dL AST (14-36) U/L Alkaline Phosphatase (38-126) U/L Total Protein (6.3-8.2) g/dL Albumin (3.5-5.0) g/dL Urine Appearance (Clear) Urine Protein (Negative) Urine Glucose (UA) (Negative) Urine Ketones (Negative) Urine Blood (Negative) Ur Leukocyte Esterase (Negative) Urine RBC (0-5) /hpf Urine WBC (0-5) /hpf Urine Bacteria (None) /hpf Hyaline Casts (0-2) /lpf Urine Mucus (None) /hpf 08/05/19 08/05/19 08/05/19 Range/Units 07:00 08:10 09:08 RBC (3.80-5.40) m/uL Hgb (11.4-16.0) gm/dL Hct (34.0-46.0) % VBG pH (7.31-7.41) VBG pCO2 (37-51) mmHg VBG HCO3 (24-28) mmol/L Sodium (137-145) mmol/L Potassium (3.5-5.1) mmol/L Chloride (98-107) mmol/L Carbon Dioxide (22-30) mmol/L BUN (7-17) mg/dL Glucose (74-99) mg/dL POC Glucose (mg/dL) 225 H 293 H 310 H (75-99) mg/dL Calcium (8.4-10.2) mg/dL Phosphorus (2.5-4.5) mg/dL AST (14-36) U/L Alkaline Phosphatase (38-126) U/L Total Protein (6.3-8.2) g/dL Albumin (3.5-5.0) g/dL Urine Appearance (Clear) Urine Protein (Negative) Urine Glucose (UA) (Negative) Urine Ketones (Negative) Urine Blood (Negative) Ur Leukocyte Esterase (Negative) Urine RBC (0-5) /hpf Urine WBC (0-5) /hpf Urine Bacteria (None) /hpf Hyaline Casts (0-2) /lpf Urine Mucus (None) /hpf 08/05/19 08/05/19 08/05/19 Range/Units 09:39 10:16 11:18 RBC (3.80-5.40) m/uL Hgb (11.4-16.0) gm/dL Hct (34.0-46.0) % VBG pH (7.31-7.41) VBG pCO2 (37-51) mmHg VBG HCO3 (24-28) mmol/L Sodium 130 L (137-145) mmol/L Potassium (3.5-5.1) mmol/L Chloride (98-107) mmol/L Carbon Dioxide 12 L (22-30) mmol/L BUN (7-17) mg/dL Glucose 304 H (74-99) mg/dL POC Glucose (mg/dL) 280 H 244 H (75-99) mg/dL Calcium 7.9 L (8.4-10.2) mg/dL Phosphorus (2.5-4.5) mg/dL AST (14-36) U/L Alkaline Phosphatase (38-126) U/L Total Protein (6.3-8.2) g/dL Albumin (3.5-5.0) g/dL Urine Appearance (Clear) Urine Protein (Negative) Urine Glucose (UA) (Negative) Urine Ketones (Negative) Urine Blood (Negative) Ur Leukocyte Esterase (Negative) Urine RBC (0-5) /hpf Urine WBC (0-5) /hpf Urine Bacteria (None) /hpf Hyaline Casts (0-2) /lpf Urine Mucus (None) /hpf 08/05/19 08/05/19 08/05/19 Range/Units 12:10 13:01 13:59 RBC (3.80-5.40) m/uL Hgb (11.4-16.0) gm/dL Hct (34.0-46.0) % VBG pH (7.31-7.41) VBG pCO2 (37-51) mmHg VBG HCO3 (24-28) mmol/L Sodium (137-145) mmol/L Potassium (3.5-5.1) mmol/L Chloride (98-107) mmol/L Carbon Dioxide (22-30) mmol/L BUN (7-17) mg/dL Glucose (74-99) mg/dL POC Glucose (mg/dL) 229 H 239 H 200 H (75-99) mg/dL Calcium (8.4-10.2) mg/dL Phosphorus (2.5-4.5) mg/dL AST (14-36) U/L Alkaline Phosphatase (38-126) U/L Total Protein (6.3-8.2) g/dL Albumin (3.5-5.0) g/dL Urine Appearance (Clear) Urine Protein (Negative) Urine Glucose (UA) (Negative) Urine Ketones (Negative) Urine Blood (Negative) Ur Leukocyte Esterase (Negative) Urine RBC (0-5) /hpf Urine WBC (0-5) /hpf Urine Bacteria (None) /hpf Hyaline Casts (0-2) /lpf Urine Mucus (None) /hpf 08/05/19 08/05/19 08/05/19 Range/Units 14:09 15:07 16:03 RBC (3.80-5.40) m/uL Hgb (11.4-16.0) gm/dL Hct (34.0-46.0) % VBG pH (7.31-7.41) VBG pCO2 (37-51) mmHg VBG HCO3 (24-28) mmol/L Sodium 132 L (137-145) mmol/L Potassium 3.3 L (3.5-5.1) mmol/L Chloride 108 H (98-107) mmol/L Carbon Dioxide 14 L (22-30) mmol/L BUN (7-17) mg/dL Glucose 194 H (74-99) mg/dL POC Glucose (mg/dL) 191 H 158 H (75-99) mg/dL Calcium 8.2 L (8.4-10.2) mg/dL Phosphorus (2.5-4.5) mg/dL AST (14-36) U/L Alkaline Phosphatase (38-126) U/L Total Protein (6.3-8.2) g/dL Albumin (3.5-5.0) g/dL Urine Appearance (Clear) Urine Protein (Negative) Urine Glucose (UA) (Negative) Urine Ketones (Negative) Urine Blood (Negative) Ur Leukocyte Esterase (Negative) Urine RBC (0-5) /hpf Urine WBC (0-5) /hpf Urine Bacteria (None) /hpf Hyaline Casts (0-2) /lpf Urine Mucus (None) /hpf Microbiology - Last 24 Hours (Table) 08/04/19 20:10 Urine Culture - Preliminary Urine,Voided Thrombosis Risk Factor Assmnt - DVT/VTE Prophylaxis DVT/VTE Prophylaxis: Pharmacologic Prophylaxis ordered - Choose All That Apply Any of the Below Risk Factors Present?: Yes Each Factor Represents 1 point: Oral contraceptives or hormone replacement therapy Other congenital or acquired thrombophilia - If yes, enter type in comment: No Thrombosis Risk Factor Assessment Total Risk Factor Score: 1 Thrombosis Risk Factor Assessment Level: Low Risk Assessment and Plan Assessment: Acute diabetic ketoacidosis Hyperkalemia secondary to acidosis improved now Sinus tachycardia due to dehydration improved now Hyperglycemia with uncontrolled diabetes type 1. Currently on insulin pump at home Hypercalcemia secondary to dehydration Possible urinary tract infection. Recent sinus infection. Currently on antibiotics in the form of Bactrim at home. DVT prophylaxis with early ambulation Plan: Patient will be continued on insulin drip until anion gap closes. IV fluids were changed to D5 half normal saline once anion gap came down to 12. Patient will be started back on insulin pump and subcu insulin once tolerates oral diet. Continue to monitor electrolytes every 4 hours and CBG Follow-up urine culture report. Continue with antibiotics ceftriaxone for now. Further recommendations based on the clinical course. Time with Patient: Greater than 30
[2019-08-05] MEDS: SODIUM CHLORIDE 0.9% 1,000 ML IV SCH (19:14)
[2019-08-05 21:07] LABS: Glucose,Whole Blood 282 mg/dL (75-99)
[2019-08-05] MEDS ORDERED: Potassium Replacement Protocol 1 EACH MISC MISCELLANE PRN ×2 (22:04→22:09)
[2019-08-05] MEDS: POTASSIUM CHLORIDE ER 20 MEQ TAB.ER PO SCH ×2 (22:15→23:25)
[2019-08-05] MEDS ORDERED: POTASSIUM CHLORIDE ER 20 MEQ TAB.ER PO SCH (23:00)
[2019-08-06 02:51] LABS: Glucose,Whole Blood 173 mg/dL (75-99)
[2019-08-06] MEDS: SODIUM CHLORIDE 0.9% 1,000 ML IV SCH (06:11)
[2019-08-06 07:02] LABS: Glucose,Whole Blood 127 mg/dL (75-99)
[2019-08-06 07:20] LABS: Basophils % (A) 1 %; Eosinophils # (A) 0.1 k/uL (0-0.7); Eosinophils % (A) 2 %; HCT 35.2 % (34.0-46.0); HGB 12.1 gm/dL (11.4-16.0); Lymphocytes # (A) 1.9 k/uL (1.0-4.8); Lymphocytes % (A) 47 %; MCH 29.4 pg (25.0-35.0); MCHC 34.4 g/dL (31.0-37.0); MCV 85.4 fL (80.0-100.0); Mean Platelet Volume 8.9; Monocytes # (A) 0.3 k/uL (0-1.0); Monocytes % (A) 7 %; Neutrophils # (A) 1.7 k/uL (1.3-7.7); Neutrophils % (A) 41 %; Platelet Count 176 k/uL (150-450); RBC 4.13 m/uL (3.80-5.40); WBC 4.1 k/uL (4.0-11.0)
[2019-08-06 07:30] LABS: African American GFR (CKD) >90 (>60 ml/min/1.73 sqM); Anion Gap 8 mmol/L; Blood Urea Nitrogen 14 mg/dL (7-17); Calcium 8.1 mg/dL (8.4-10.2); Carbon Dioxide 20 mmol/L (22-30); Chloride 109 mmol/L (98-107); Glucose 133 mg/dL (74-99); Non-African American GFR(CKD) >90 (>60 ml/min/1.73 sqM); Potassium 3.8 mmol/L (3.5-5.1); Sodium 137 mmol/L (137-145)
[2019-08-06 08:26] VITALS: RESP 12
[2019-08-06] MEDS: INSULIN PUMP MEAL BOLUS 1 UNIT MISC MISCELLANE SCH ×2 (09:06→15:07)
[2019-08-06 11:49] LABS: Glucose,Whole Blood 393 mg/dL (75-99)
[2019-08-06 15:37] VITALS: BP 110/76; PULSE 99; TEMP 98
[2019-08-06 16:55] LABS: Glucose,Whole Blood 140 mg/dL (75-99)
== END 2019-08-06 17:45 | disposition home or self-care (01) | DRG 639 ==
LOC: EC 18:52 → UNDOADMIN 22:47 → 3SCARD 22:47 → 2SICU 22:47 → 4SSUR 08-05 23:41
PROVIDERS: ADMIT Hospitalist; ATTEND Hospitalist
DX: E10.10 Type 1 diabetes mellitus with ketoacidosis without coma (principal); E83.52 Hypercalcemia; E86.0 Dehydration; E87.5 Hyperkalemia; Z79.4 Long term (current) use of insulin; Z82.49 Family history of ischemic heart disease and other diseases of the circulatory system; Z82.5 Family history of asthma and other chronic lower respiratory diseases; Z79.3 Long term (current) use of hormonal contraceptives
CPT/HCPCS: 36415; 71046; 80048; 80053; 81001; 81025; 82009; 82803; 83735; 84100; 84132; 85025; 87086; 93005; 96360; 96361; 99285

== ENCOUNTER 2019-09-12 01:42 | Emergency (ER) | payer BC ==
[2019-09-12 01:51] VITALS: RESP 18
[2019-09-12] MEDS ORDERED: SODIUM CHLORIDE 0.9% 500 ML 500 ML IV STA (02:04)
[2019-09-12 02:41] LABS: Basophils # (A) 0.1 k/uL (0-0.2); Basophils % (A) 1 %; Eosinophils # (A) 0.2 k/uL (0-0.7); Eosinophils % (A) 2 %; HCT 43.7 % (34.0-46.0); HGB 14.9 gm/dL (11.4-16.0); Lymphocytes # (A) 2.7 k/uL (1.0-4.8); Lymphocytes % (A) 30 %; MCH 29.8 pg (25.0-35.0); MCV 87.7 fL (80.0-100.0); Mean Platelet Volume 9.7; Monocytes # (A) 0.3 k/uL (0-1.0); Monocytes % (A) 4 %; Neutrophils # (A) 5.4 k/uL (1.3-7.7); Neutrophils % (A) 61 %; Platelet Count 241 k/uL (150-450); RBC 4.99 m/uL (3.80-5.40); RDW 12.3 % (11.5-15.5); WBC 8.8 k/uL (4.0-11.0)
[2019-09-12 02:52] LABS: Appearance,Urine Cloudy (Clear); Bacteria,Urine Moderate /hpf; Bilirubin,Urine Negative (Negative); Blood,Urine Small (Negative); Budding Yeast,Urine Few /hpf; Color,Urine Yellow; Glucose,Urine (UA) 4+ (Negative); Leukocyte Esterase,Urine Small (Negative); Mucus,Urine Rare /hpf; Nitrite,Urine Negative (Negative); PH, Urine 5.5 (5.0-8.0); Protein,Urine 1+ (Negative); RBC,Urine 108 /hpf (0-5); Squamous Epithelial Cell,Urine 14 /hpf (0-4); Urobilinogen,Urine <2.0 mg/dL (<2.0); WBC,Urine 22 /hpf (0-5)
[2019-09-12 02:58] LABS: ALT 14 U/L (4-34); AST 26 U/L (14-36); African American GFR (CKD) >90 (>60 ml/min/1.73 sqM); Albumin 4.8 g/dL (3.5-5.0); Alkaline Phosphatase 120 U/L (38-126); Anion Gap 13 mmol/L; Blood Urea Nitrogen 17 mg/dL (7-17); Calcium 9.6 mg/dL (8.4-10.2); Carbon Dioxide 20 mmol/L (22-30); Chloride 102 mmol/L (98-107); Glucose 263 mg/dL (74-99); Non-African American GFR(CKD) >90 (>60 ml/min/1.73 sqM); Sodium 135 mmol/L (137-145); Total Bilirubin 0.7 mg/dL (0.2-1.3); Total Protein 8.1 g/dL (6.3-8.2)
[2019-09-12 02:59] LABS: Potassium 4.2 mmol/L (3.5-5.1)
[2019-09-12 03:05] LABS: Specific Gravity,Urine 1.047 (1.001-1.035)
[2019-09-12 03:06] LABS: Ketones,Urine 4+ (Negative)
[2019-09-12] MEDS ORDERED: SODIUM CHLORIDE 0.9% 1,000 ML IV STA (03:06)
--- NOTE | 2019-09-12 03:36 | ED ---
General Adult HPI - General Chief complaint: Extremity Problem,Nontraumatic Stated complaint: Numbness/Leg/Bilateral Time Seen by Provider: 09/12/19 01:51 Source: patient, RN notes reviewed, old records reviewed Mode of arrival: ambulatory Limitations: no limitations - History of Present Illness Initial comments: 19-year-old female patient past history of type 1 diabetes presents to ED for chief complaint paresthesias in lower extremities. Patient reports that starting approximately 8:30 today she management waxing and waning lower extremity paresthesias in her anterior tibial region. Reports that he did not constantly reports that time evaluation patient does not have any paresthesias. Denies recent falls or trauma. Denies any other complaints. Does report that sugars have been reasonably well controlled. Denies any nausea vomiting diarrhea . Denies any pain. Systemic: Pt denies fatigue, fever/chills, rash. Pt denies weakness, night swea ts, weight loss. Neuro: Pt denies headache, visual disturbances, syncope or pre-syncope. HEENT: Pt denies ocular discharge or irritation, otalgia, rhinorrhea, pharyngitis or notable lymphadenopathy. Cardiopulmonary: Pt denies chest pain, SOB, heart palpitations, dyspnea on exertion. Abdominal/GI: Pt denies abdominal pain, n/v/d. : Pt denies dysuria, burning w/ urination, frequency/urgency. Denies new onset urinary or bowel incontinence. MSK: Pt denies myalgia, loss of strength or function in extremities. Neuro: Pt denies new onset weakness, paresthesias. - Related Data Home Medications Medication Instructions Recorded Confirmed Insulin Aspart (For Pump) [NovoLOG 0.01 unit SQ-PUMP CONTINUOUS 08/04/19 08/04/19 (For Pump)] Mucinex Sinus Max Nasal [place] 1 spr EA NOSTRIL DAILY 08/04/19 medroxyPROGESTERone [Depo-Provera] 150 mg IM Q84D 08/04/19 08/04/19 Previous Rx's Medication Instructions Recorded Cefixime 400 mg PO DAILY 5 Days #5 capsule 08/06/19 Allergies Allergy/AdvReac Type Severity Reaction Status Date / Time amoxicillin Allergy Unknown Verified 09/12/19 01:50 Review of Systems ROS Statement: Those systems with pertinent positive or pertinent negative responses have been documented in the HPI. ROS Other: All systems not noted in ROS Statement are negative. Past Medical History Past Medical History: Diabetes Mellitus History of Any Multi-Drug Resistant Organisms: None Reported Past Surgical History: No Surgical Hx Reported Past Psychological History: No Psychological Hx Reported Smoking Status: Never smoker Past Alcohol Use History: None Reported Past Drug Use History: None Reported - Past Family History Mother Family Medical History: Hypertension, Thyroid Disorder Father Family Medical History: COPD General Exam - General Exam Comments Initial Comments: Constitutional: NAD, AOX3, Pt has pleasant affect. HEENT: NC/AT, trachea midline, neck supple, no lymphadenopathy. Posterior pharynx non erythematous, without exudates. External ears appear normal, without discharge. Mucous membranes moist. Eyes PERRLA, EOM intact. There is no scleral icterus. No pallor noted. Cardiopulmonary: RRR, no murmurs, rubs or gallops, no JVD noted. Lungs CTAB in anterior and posterior lebron. No peripheral edema. Abdominal exam: Abdomen soft and non-distended. Abdomen non-tender to palpation in all 4 quadrants. Bowel sounds active in LLQ. No hepatosplenomegaly. No ecchymosis Neuro: CN II-XII intact. No nuchal rigidity. No raccon eyes, no cope sign, no hemotympanum. No cervical spinal tenderness. MSK: No posterior calf tenderness bilaterally, homans sign negative bilaterally. Posterior tibialis and radial pulse +2 bilaterally. Sensation intact in upper and lower extremities. Full active ROM in upper and lower extremities, 5/5 stregnth. Limitations: no limitations Course Vital Signs 09/12/19 09/12/19 01:48 03:21 Temperature 98.1 F 97.8 F Pulse Rate 105 H 88 Respiratory 18 18 Rate Blood Pressure 132/86 119/83 O2 Sat by Pulse 100 98 Oximetry Medical Decision Making - Medical Decision Making 19-year-old female patient past history of type 1 diabetes presents to ED for chief complaint paresthesias in lower extremities. Patient reports that starting approximately 8:30 today she management waxing and waning lower extremity paresthesias in her anterior tibial region. Reports that he did not constantly reports that time evaluation patient does not have any paresthesias. Denies recent falls or trauma. Denies any other complaints. Does report that sugars have been reasonably well controlled. Denies any nausea vomiting diarrhea. Denies any pain. Patient will tender stable, afebrile. Physical exam this acute pathology. Neurologic exams within normal limits. Sensation is intact. Laboratory investigations were obtained. This was significant for bicarb of 20, glucose of 263, +1 protein, +4 glucose, +4 ketones. Patient administered herself insulin via her insulin pump. Was administered 1.5 L bolus. - Lab Data Result diagrams: 09/12/19 02:26 09/12/19 02: Lab Results 09/12/19 09/12/19 09/12/19 Range/Units 02: 02: 02: WBC 8.8 (4.0-11.0) k/uL RBC 4.99 (3.80-5.40) m/uL Hgb 14.9 (11.4-16.0) gm/dL Hct 43.7 (34.0-46.0) % MCV 87.7 (80.0-100.0) fL MCH 29.8 (25.0-35.0) pg MCHC 34.0 (31.0-37.0) g/dL RDW 12.3 (11.5-15.5) % Plt Count 241 (150-450) k/uL Neutrophils % 61 % Lymphocytes % 30 % Monocytes % 4 % Eosinophils % 2 % Basophils % 1 % Neutrophils # 5.4 (1.3-7.7) k/uL Lymphocytes # 2.7 (1.0-4.8) k/uL Monocytes # 0.3 (0-1.0) k/uL Eosinophils # 0.2 (0-0.7) k/uL Basophils # 0.1 (0-0.2) k/uL Sodium 135 L (137-145) mmol/L Potassium 4.2 (3.5-5.1) mmol/L Chloride 102 (98-107) mmol/L Carbon Dioxide 20 L (22-30) mmol/L Anion Gap 13 mmol/L BUN 17 (7-17) mg/dL Creatinine 0.58 (0.52-1.04) mg/dL Est GFR (CKD-EPI)AfAm >90 (>60 ml/min/1.73 sqM) Est GFR (CKD-EPI)NonAf >90 (>60 ml/min/1.73 sqM) Glucose 263 H (74-99) mg/dL Calcium 9.6 (8.4-10.2) mg/dL Total Bilirubin 0.7 (0.2-1.3) mg/dL AST 26 (14-36) U/L ALT 14 (4-34) U/L Alkaline Phosphatase 120 (38-126) U/L Total Protein 8.1 (6.3-8.2) g/dL Albumin 4.8 (3.5-5.0) g/dL Urine Color Urine Appearance (Clear) Urine pH (5.0-8.0) Ur Specific [place] (1.001-1.035) Urine Protein (Negative) Urine Glucose (UA) (Negative) Urine Ketones (Negative) Urine Blood (Negative) Urine Nitrite (Negative) Urine Bilirubin (Negative) Urine Urobilinogen (<2.0) mg/dL Ur Leukocyte Esterase (Negative) Urine RBC (0-5) /hpf Urine WBC (0-5) /hpf Ur Squamous Epith Cells (0-4) /hpf Urine Bacteria (None) /hpf Urine Mucus (None) /hpf Urine Yeast (Budding) (None) /hpf Urine HCG, Qual Not Detected (Not Detectd) Acetone, Qual Negative (Negative) 09/12/19 Range/Units 02:26 WBC (4.0-11.0) k/uL RBC (3.80-5.40) m/uL Hgb (11.4-16.0) gm/dL Hct (34.0-46.0) % MCV (80.0-100.0) fL MCH (25.0-35.0) pg MCHC (31.0-37.0) g/dL RDW (11.5-15.5) % Plt Count (150-450) k/uL Neutrophils % % Lymphocytes % % Monocytes % % Eosinophils % % Basophils % % Neutrophils # (1.3-7.7) k/uL Lymphocytes # (1.0-4.8) k/uL Monocytes # (0-1.0) k/uL Eosinophils # (0-0.7) k/uL Basophils # (0-0.2) k/uL Sodium (137-145) mmol/L Potassium (3.5-5.1) mmol/L Chloride (98-107) mmol/L Carbon Dioxide (22-30) mmol/L Anion Gap mmol/L BUN (7-17) mg/dL Creatinine (0.52-1.04) mg/dL Est GFR (CKD-EPI)AfAm (>60 ml/min/1.73 sqM) Est GFR (CKD-EPI)NonAf (>60 ml/min/1.73 sqM) Glucose (74-99) mg/dL Calcium (8.4-10.2) mg/dL Total Bilirubin (0.2-1.3) mg/dL AST (14-36) U/L ALT (4-34) U/L Alkaline Phosphatase (38-126) U/L Total Protein (6.3-8.2) g/dL Albumin (3.5-5.0) g/dL Urine Color Yellow Urine Appearance Cloudy H (Clear) Urine pH 5.5 (5.0-8.0) Ur Specific [place] 1.047 H (1.001-1.035) Urine Protein 1+ H (Negative) Urine Glucose (UA) 4+ H (Negative) Urine Ketones 4+ H (Negative) Urine Blood Small H (Negative) Urine Nitrite Negative (Negative) Urine Bilirubin Negative (Negative) Urine Urobilinogen <2.0 (<2.0) mg/dL Ur Leukocyte Esterase Small H (Negative) Urine RBC 108 H (0-5) /hpf Urine WBC 22 H (0-5) /hpf Ur Squamous Epith Cells 14 H (0-4) /hpf Urine Bacteria Moderate H (None) /hpf Urine Mucus Rare H (None) /hpf Urine Yeast (Budding) Few H (None) /hpf Urine HCG, Qual (Not Detectd) Acetone, Qual (Negative) Disposition Clinical Impression: Hyperglycemia due to type 1 diabetes mellitus Disposition: HOME SELF-CARE Condition: Stable Instructions (If sedation given, give patient instructions): Diabetic Hype rglycemia (ED) Additional Instructions: Continue to closely monitor blood sugar at home. Follow-up with [employer] foreman tomorrow to ensure that things are optimal. If he feel numbness tingling or strange at all check a fingerstick glucose to compare. Return to ER if condition worsens. Is patient prescribed a controlled substance at d/c from ED?: No Referrals: Amari Au DO [Primary Care Provider] - 1-2 days
[2019-09-12 03:49] LABS: Glucose,Whole Blood 222 mg/dL (75-99)
[2019-09-12 04:27] LABS: Glucose,Whole Blood 187 mg/dL (75-99)
[2019-09-12 04:38] VITALS: BP 112/72; PULSE 80; TEMP 98
== END 2019-09-12 04:38 | disposition home or self-care (01) ==
LOC: EC 01:42
DX: E10.65 Type 1 diabetes mellitus with hyperglycemia (principal); Z79.4 Long term (current) use of insulin; Z79.3 Long term (current) use of hormonal contraceptives; Z88.0 Allergy status to penicillin; Z96.41 Presence of insulin pump (external) (internal)
CPT/HCPCS: 36415; 80053; 81001; 81025; 82009; 85025; 87086; 96360; 99284

== ENCOUNTER 2020-03-27 22:12 | Emergency (ER) | payer BC ==
[2020-03-27 22:19] VITALS: BP 117/77; PULSE 138; RESP 16; TEMP 98.1
[2020-03-27] MEDS ORDERED: SODIUM CHLORIDE 0.9% 1,000 ML IV ONE (22:24)
[2020-03-27] MEDS ORDERED: SODIUM CHLORIDE 0.9% 500 ML 500 ML IV ONE (22:24)
--- NOTE | 2020-03-27 23:04 | ED ---
Recheck HPI - General Chief Complaint: Recheck/Abnormal Lab/Rx Stated Complaint: Poss DKA Time Seen by Provider: 03/27/20 22:23 Source: patient Mode of arrival: ambulatory Limitations: no limitations - History of Present Illness Initial Comments: Mariaa Tanner for evaluation of hyperglycemia. Patient reports that as scheduled she changed her pump site this morning, this evening she noted that she wasn't feeling very well and when she checked her sugar was over 500. She didn't bolus herself some insulin and then come to the ER for further evaluation. Patient denies any recent illness. She denies any fevers, chills, nausea, vomiting, chest pain, shortness of breath. She denies any abdominal pain or dysuria. She denies any possibility of . She states the last time she was in DKA was September or October of this year and was likely related to insulin pump malfunction. - Related Data Home Medications Medication Instructions Recorded Confirmed Insulin Aspart (For Pump) [NovoLOG 0.01 unit SQ-PUMP CONTINUOUS 08/04/19 10/31/19 (For Pump)] medroxyPROGESTERone [Depo-Provera] 150 mg IM Q84D 08/04/19 10/31/19 Previous Rx's Medication Instructions Recorded Cephalexin [Keflex] 500 mg PO Q8HR 7 Days #21 cap 11/01/19 Allergies Allergy/AdvReac Type Severity Reaction Status Date / Time amoxicillin Allergy Unknown Verified 03/27/20 22:19 Review of Systems ROS Statement: Those systems with pertinent positive or pertinent negative responses have been documented in the HPI. ROS Other: All systems not noted in ROS Statement are negative. Past Medical History Past Medical History: Diabetes Mellitus History of Any Multi-Drug Resistant Organisms: None Reported Past Surgical History: No Surgical Hx Reported Additional Past Surgical History / Comment(s): upper thigh abcess removed. Past Psychological History: No Psychological Hx Reported Smoking Status: Never smoker Past Alcohol Use History: Occasional Past Drug Use History: None Reported - Past Family History Mother Family Medical History: Hypertension, Thyroid Disorder Father Family Medical History: COPD General Exam - General Exam Comments Initial Comments: Physical Exam GENERAL: Patient is well-developed and well-nourished. Patient is nontoxic and well- hydrated and is in no distress. HENT: Normocephalic, Atraumatic. EYES: PERRL, EOMI PULMONARY: Unlabored respirations. No audible rales rhonchi or wheezing was noted. CARDIOVASCULAR: There is a regular rate and rhythm without any murmurs gallops or rubs. ABDOMEN: Soft and nontender with normal bowel sounds. SKIN: Skin is clear with no lesions or rashes and otherwise unremarkable. : Deferred NEUROLOGIC: Patient is alert and oriented x3. Moving all extremities spontaneously MUSCULOSKELETAL: Normal extremities with adequate strength and full range of motion. No lower extremity swelling or edema. No calf tenderness. PSYCHIATRIC: Normal psychiatric evaluation. Limitations: no limitations Course Vital Signs 03/27/20 22:16 Temperature 98.1 F Pulse Rate 138 H Respiratory 16 Rate Blood Pressure 117/77 O2 Sat by Pulse 98 Oximetry Medical Decision Making - Medical Decision Making The patient was seen and evaluated history is obtained from the patient 20-year-old female type 1 diabetes who had hyperglycemia likely related to a pump failure after changing her pump site this morning Patient bolused herself with insulin prior to arrival the emergency department DKA workup was ordered Multiple attempts were made to obtain IV access and blood but were unsuccessful, patient became frustrated and stated that she was arty feeling better. On reevaluation's patient's glucose is less than 200. Patient states that she like to go home at this time she'll continue to manage her own glucose. I discussed with the patient at this time we have evaluated her hydration status or electrolytes and she cannot significant electrolyte abnormalities. Patient expresses understanding of this but feels well and would like to be discharged. The patient has decided to leave against medical advice because she is feeling well, hyperglycemia is improving The patient has adequate capacity to make medical decisions. The patient refuses additional attempts at blood draw, further evaluation hospital admission and wants to be discharged. The risks have been explained to the patient, including undiagnosed electrolyte abnormality, worsening illness and . The benefits of workup/admission have also been explained, including the availability and proximity of nurses, physicians, monitoring, diagnostic testing and treatment The patient was able to understand and state the risks and benefits of hospital admission. This was witnessed by nurse Herlinda Jordan and me. The patient the opportunity to ask questions about their medical condition. The patient was treated to the extent that they would allow and knows that they may return for care at any time. - Lab Data Lab Results 03/27/20 Range/Units 23:34 POC Glucose (mg/dL) 198 H (75-99) mg/dL POC Glu [employer] Developer ID Radha Inman Disposition Clinical Impression: Hyperglycemia due to type 1 diabetes mellitus Disposition: Left Against Medical Advice Condition: Stable Is patient prescribed a controlled substance at d/c from ED?: No Referrals: Amari Au DO [Primary Care Provider] - 1-2 days
[2020-03-27 23:38] LABS: Glucose,Whole Blood 198 mg/dL (75-99)
== END 2020-03-27 23:35 | disposition left against medical advice (07) ==
LOC: EC 22:12
DX: E10.65 Type 1 diabetes mellitus with hyperglycemia (principal); Z53.29 Procedure and treatment not carried out because of patient's decision for other reasons; Z88.0 Allergy status to penicillin; Z79.4 Long term (current) use of insulin; Z79.3 Long term (current) use of hormonal contraceptives; Z98.890 Other specified postprocedural states
CPT/HCPCS: 36415; 99284